=== PATIENT | female | born 1995 | race African-American/Black ===

== ENCOUNTER 2018-08-03 10:41 | Emergency (ER) | payer BC, MEDICAID ==
[2018-08-03] MEDS ORDERED: Ondansetron 4 MG/2 ML SDV IVPUSH ONE (11:05)
[2018-08-03] MEDS ORDERED: Sodium Chloride 0.9% 10 ML Syringe FLUSH PRN (11:05)
[2018-08-03] MEDS: Sodium Chloride 0.9% 1,000 ML IV SCH ×2 (11:21→12:26)
--- NOTE | 2018-08-03 11:47 | EDM.PDOC ---
ED HPI GENERAL MEDICAL PROBLEM - General Chief Complaint: Gastrointestinal Problem Stated Complaint: VOMITING 5 WEEKS PREG Time Seen by Provider: 08/03/18 11:04 Source of Information: Reports: Patient, RN Notes Reviewed History Limitations: Reports: Language Barrier (interpretive services utilized, is persian speaking.) - History of Present Illness INITIAL COMMENTS - FREE TEXT/NARRATIVE: Patient is a 22-year-old female who comes to the ED with her for evaluation of vomiting and . The patient is Serbian speaking only, the does speak little Greenlandic, but would prefer to use interpretive services. The patient states she is 5 weeks , , and has seen Dr. Turner for this vomiting. She notes she has been having this vomiting for the past week. The vomiting started yellow, green, bile in nature and now she thinks she is vomiting up blood. The patient notes that she is having stomach pain and bilateral upper abdomen pain due to the vomiting. As far as I can tell the patient was given a prescription for Zofran, but took it incorrectly. She took one tab and swallowed it yesterday, and this did not provide any nausea relief so the patient kept vomiting. The patient states that she has only taken 1 dose of Zofran yesterday. The patient denies any vaginal bleeding or lower abdominal cramping at this time. The patient states she has not been able to keep much down for foods or fluids, and feels somewhat lightheaded due to this. She denies any questionable foods that she may have eaten that would have attributed to this. 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: () Musculoskeletal History: Reports: None Neurological History: Reports: None Psychiatric History: Reports: None Endocrine/Metabolic History: Reports: None Hematologic History: Reports: None Immunologic History: Reports: None Oncologic (Cancer) History: Reports: None Dermatologic History: Reports: None - Infectious Disease History Infectious Disease History: Reports: None - Past Surgical History Head Surgeries/Procedures: Reports: None Social & Family History - Tobacco Use Smoking Status *Q: Never Smoker - Caffeine Use Caffeine Use: Reports: None - Recreational Drug Use Recreational Drug Use: No ED ROS GENERAL - Review of Systems Review Of Systems: See Below Constitutional: Reports: Weakness (generalized). Denies: Fever, Chills HEENT: Reports: No Symptoms Respiratory: Denies: Shortness of Breath, Cough Cardiovascular: Denies: Chest Pain GI/Abdominal: Reports: Abdominal Pain (epigastrium, bilateral upper abdomen), Nausea, Vomiting. Denies: Constipation, Diarrhea : Reports: Other (no vaginal bleeding). Denies: Dysuria Musculoskeletal: Reports: No Symptoms Skin: Reports: No Symptoms Neurological: Reports: Dizziness (lightheadedness). Denies: Confusion Psychiatric: Reports: No Symptoms Hematologic/Lymphatic: Reports: No Symptoms ED EXAM - Physical Exam Exam: See Below Exam Limited By: Language Barrier (interpretive services utilized, is persian speaking.) General Appearance: Alert, WD/WN, No Apparent Distress Eye Exam: Bilateral Eye: Normal Inspection Ears: Normal External Exam Nose: Normal Inspection, Normal Mucosa, No Blood Throat/Mouth: Normal Inspection, Normal Lips, Normal Teeth, Normal Gums, Normal Oropharynx, Normal Voice, No Airway Compromise Head: Atraumatic, Normocephalic Neck: Normal Inspection, Supple, Non-Tender, Full Range of Motion Respiratory/Chest: No Respiratory Distress, Lungs Clear, Normal Breath Sounds, No Accessory Muscle Use, Chest Non-Tender Cardiovascular: Normal Peripheral Pulses, Regular Rate, Rhythm, No Murmur GI/Abdominal Exam: Normal Bowel Sounds, Soft, Non-Tender, No Distention, No Mass Heart Tones: Not Daniels Movement: Not Appreciated Extremities: Normal Inspection, Normal Capillary Refill Neurological: Alert, Oriented, Normal Cognition, No Motor/Sensory Deficits Psychiatric: Normal Affect, Normal Mood Skin Exam: Warm, Dry, Intact, Normal Color, No Rash Course - Vital Signs Last Recorded V/S: Last Vital Signs Temp 98.2 F 08/03/18 10:56 Pulse 64 08/03/18 10:56 Resp 16 08/03/18 10:56 BP 122/69 08/03/18 10:56 Pulse Ox 99 08/03/18 10:56 Orthostatic Blood Pressure [ 117/75 Standing] Orthostatic Blood Pressure [ 118/72 Sitting] Orthostatic Blood Pressure [ 114/72 Supine] - Orders/Labs/Meds Orders: Active Orders 24 hr Category Date Time Status Orthostatic Vital Signs [RC] ASDIRECTED Care 08/03/18 12:07 Active Peripheral IV Care [RC] . DIRECTED Care 08/03/18 11:05 Active Sodium Chloride 0.9% [Normal Saline] 1,000 ml Med 08/03/18 11:15 Active IV ASDIRECTED Sodium Chloride 0.9% [Normal Saline] 1,000 ml Med 08/03/18 12:15 Active IV ASDIRECTED Sodium Chloride 0.9% [Saline Flush] Med 08/03/18 11:05 Active 10 ml FLUSH ASDIRECTED PRN Peripheral IV Insertion Adult [OM.PC] Routine Oth 08/03/18 11:05 Ordered Medication Orders Sodium Chloride (Normal Saline) 1,000 mls @ 999 mls/hr IV ASDIRECTED TIGRE Last Admin: 08/03/18 12:26 Dose: 999 mls/hr Infusion: 08/03/18 12:22 Dose: 999 mls/hr Admin: 08/03/18 11:21 Dose: 999 mls/hr Sodium Chloride (Normal Saline) 1,000 mls @ 999 mls/hr IV ASDIRECTED TIGRE Sodium Chloride (Saline Flush) 10 ml FLUSH ASDIRECTED PRN PRN Reason: Keep Vein Open Last Admin: 08/03/18 11:22 Dose: 10 ml Labs: Laboratory Tests 08/03/18 08/03/18 Range/Units 11:20 11:20 WBC 9.30 (3.98-10.04) K/mm3 RBC 4.70 (3.98-5.22) M/mm3 Hgb 13.3 (11.2-15.7) gm/L Hct 39.2 (34.1-44.9) % MCV 83.4 (79.4-94.8) fl MCH 28.3 (25.6-32.2) pg MCHC 33.9 (32.2-35.5) g/dl RDW Std Deviation 39.0 (36.4-46.3) fL Plt Count 346 (182-369) K/mm3 MPV 11.2 (9.4-12.3) fl Neutrophils % (Manual) 71 H (40-60) % Band Neutrophils % 0 (0-10) % Lymphocytes % (Manual) 22 (20-40) % Atypical Lymphs % 0 % Monocytes % (Manual) 6 (2-10) % Eosinophils % (Manual) 0 L (0.7-5.8) % Basophils % (Manual) 1 (0.1-1.2) Platelet Estimate Adequate RBC Morph Comment Normal Sodium 135 L (136-145) mEq/L Potassium 3.9 (3.5-5.1) mEq/L Chloride 99 (98-107) mEq/L Carbon Dioxide 23 (21-32) mEq/L Anion Gap 16.9 H (5-15) BUN 11 (7-18) mg/dL Creatinine 0.7 (0.55-1.02) mg/dL Est Cr Clr Drug Dosing TNP Estimated GFR (MDRD) > 60 (>60) mL/min BUN/Creatinine Ratio 15.7 (14-18) Glucose 80 (74-106) mg/dL Calcium 9.7 (8.5-10.1) mg/dL Meds: Medications Generic Name Dose Route Start Last Admin Trade Name Freq PRN Reason Stop Dose Admin Sodium Chloride 1,000 mls @ 999 mls/hr 08/03/18 11:15 08/03/18 12:26 Normal Saline IV 999 mls/hr ASDIRECTED TIGRE Administration Sodium Chloride 1,000 mls @ 999 mls/hr 08/03/18 12:15 Normal Saline IV ASDIRECTED TIGRE Sodium Chloride 10 ml 08/03/18 11:05 08/03/18 11:22 Saline Flush FLUSH 10 ml ASDIRECTED PRN Administration Keep Vein Open Discontinued Medications Generic Name Dose Route Start Last Admin Trade Name Freq PRN Reason Stop Dose Admin Acetaminophen 650 mg 08/03/18 12:02 08/03/18 12:23 Tylenol PO 08/03/18 12:03 650 mg NOW ONE Administration Ondansetron HCl 4 mg 08/03/18 11:05 08/03/18 11:21 Zofran IVPUSH 08/03/18 11:06 4 mg ONETIME ONE Administration - Re-Assessments/Exams Free Text/Narrative Re-Assessment/Exam: 08/03/18 12:07 Patient presents to the ED for the evaluation of vomiting and . Have ordered IV fluids, 4 mg IV Zofran, CBC, BMP for initial management. Will likely order another bag of fluids as the patient states she still feels dizzy and lightheaded after most of the first bag of IVF has been given. We will do orthostatic vital signs upon completion of the first bag. 08/03/18 12:44 Patient's labs have returned, her sodium is mildly low at 135, and anion gap is slightly elevated at 16.9. IV fluid should help, and will re-educate her on the use of Zofran. Departure - Departure Time of Disposition: 13:01 Disposition: Home, Self-Care 01 Condition: Fair Clinical Impression: Vomiting during - Discharge Information *PRESCRIPTION DRUG MONITORING PROGRAM REVIEWED*: No *COPY OF PRESCRIPTION DRUG MONITORING REPORT IN PATIENT BLAKE: No Instructions: Morning Sickness, [id number] Referrals: Shi Turner MD [Primary Care Provider] - Forms: ED Department Discharge Additional Instructions: You were seen in the ER for your vomiting. Your laboratory evaluation demonstrated no bacterial infection, and slight dehydration. You were given IV fluids to correct this. Please take the anti-nausea medication Zofran, 1 tab dissolvable under your tongue every 8 hours as needed for nausea/vomiting. You may want to try to stick to clear liquids over the next 24 hours (gatorade, chicken broths, etc.) and advance to bland diet as tolerated. You may take 500mg Tylenol every 6 hours as needed for further pain relief, Do not take more than 4000mg in a 24 hour time span. Please follow up with Dr. Turner for further management of your . Please return to the ER if your symptoms should change or worsen. lorena dietz'ayt fi ER lituqyiwk. 'mago taqyirosibel hill edm jose aadm. le ' iietawuk sawayil IV litashih hadha. elizja tanjunaid gua' Zofran almadasade makghoksanaan , 1 ealamat tabwib qabilat l[address] taht [address] saeat hsb alhaadyt aubreeghuthraleigh / alqay'. qad targhab fi muhawalat [place] bimash alsawayil ealaa madar al'arbae weshryn saeat alqadima (altamsah , [place] aldijaj , wama 'iilaa dhulka) waltaqadum 'iilaa nizam ghadhayiyin mariajose nancy hu maqbulun. qad takhudh [address] saeat hsb alhajat litakhfif al'jaden , wala takhudh 'akthar min [address] khilal fatrat zamaniat tablugh 24 saeat. yrja almutabaeat gardner alduktur mukmakin limazid min 'iidarat alhaml. yrja aleawdat 'iilaa altawari 'iidha taghayarat al'aerad 'aw sa'at. - My Orders Last 24 Hours: My Active Orders 08/03/18 11:05 Peripheral IV Care [RC] . DIRECTED Sodium Chloride 0.9% [Saline Flush] 10 ml FLUSH ASDIRECTED PRN Peripheral IV Insertion Adult [OM.PC] Routine 08/03/18 11:15 Sodium Chloride 0.9% [Normal Saline] 1,000 ml IV ASDIRECTED 08/03/18 12:07 Orthostatic Vital Signs [RC] ASDIRECTED 08/03/18 12:15 Sodium Chloride 0.9% [Normal Saline] 1,000 ml IV ASDIRECTED - Assessment/Plan Last 24 Hours: My Active Orders 08/03/18 11:05 Peripheral IV Care [RC] . DIRECTED Sodium Chloride 0.9% [Saline Flush] 10 ml FLUSH ASDIRECTED PRN Peripheral IV Insertion Adult [OM.PC] Routine 08/03/18 11:15 Sodium Chloride 0.9% [Normal Saline] 1,000 ml IV ASDIRECTED 08/03/18 12:07 Orthostatic Vital Signs [RC] ASDIRECTED 08/03/18 12:15 Sodium Chloride 0.9% [Normal Saline] 1,000 ml IV ASDIRECTED
[2018-08-03] MEDS ORDERED: Acetaminophen 325 MG Tab PO ONE (12:02)
[2018-08-03] MEDS ORDERED: Sodium Chloride 0.9% 1,000 ML IV SCH (12:15)
== END 2018-08-03 13:35 | disposition home or self-care (01) ==
LOC: JD.ED 10:41
DX: O21.9 Vomiting of pregnancy, unspecified (principal); Z3A.01 Less than 8 weeks gestation of pregnancy
CPT/HCPCS: 36415; 80048; 85007; 85027; 96361; 96374; 99284; A9270; J2405; J7040; 99283

== ENCOUNTER 2019-03-14 06:00 | Inpatient (IN) | payer BC ==
[2019-03-14] MEDS ORDERED: Sodium Chloride 0.9% 10 ML Syringe FLUSH PRN (07:06)
[2019-03-14] MEDS ORDERED: Nalbuphine 10 MG/ML Syringe IVPUSH PRN (07:06)
[2019-03-14] MEDS ORDERED: Oxytocin/Lactated Ringers 10 UNIT/1,000 ML BAG IV SCH ×2 (07:15)
[2019-03-14] MEDS ORDERED: Lactated Ringers 1,000 ML IV SCH (07:15)
[2019-03-14] MEDS ORDERED: Lidocaine 1% 50 ML MDV INJECT ONE (08:00)
[2019-03-14] MEDS: Aluminum Hydroxide/Magnesium Hydroxide/Simethicone Susp 30 ML Cup PO PRN ×2 (08:02→14:59)
[2019-03-14] MEDS ORDERED: Bupivacaine/fentaNYL/NS 100 ML Bag EPIDUR PRN (08:12)
[2019-03-14] MEDS ORDERED: ePHEDrine 50 MG/ML SDV IVPUSH PRN (08:12)
[2019-03-14] MEDS ORDERED: fentaNYL 100 MCG/2 ML SDV EPIDUR PRN (08:12)
[2019-03-14] MEDS ORDERED: diphenhydrAMINE 50 MG/ML SDV IVPUSH PRN (08:12)
--- NOTE | 2019-03-14 08:17 | PCM.LDHP ---
L&D History of Present Illness - General Date of Service: 03/14/19 Admit Problem/Dx: Patient Status Order with Admit Dx/Problem 03/14/19 07:06 Patient Status [ADT] Routine Admission Diagnosis/Problem Admission Diagnosis/Problem Source of Information: Patient History Limitations: Reports: No Limitations - History of Present Illness Introduction:: 23 year old at 38w3d presents with SROM clear fluid at 0530 am. Contractions began thereafter. PNC with myself without complications. 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: () Musculoskeletal History: Reports: None Neurological History: Reports: None Psychiatric History: Reports: None Endocrine/Metabolic History: Reports: None Hematologic History: Reports: None Immunologic History: Reports: None Oncologic (Cancer) History: Reports: None Dermatologic History: Reports: None - Infectious Disease History Infectious Disease History: Reports: None - Past Surgical History Head Surgeries/Procedures: Reports: None Social & Family History - Caffeine Use Caffeine Use: Reports: None H&P Review of Systems - Review of Systems: Review Of Systems: See Below General: Reports: No Symptoms HEENT: Reports: No Symptoms Pulmonary: Reports: No Symptoms Cardiovascular: Reports: No Symptoms Gastrointestinal: Reports: No Symptoms Genitourinary: Reports: No Symptoms Musculoskeletal: Reports: No Symptoms Skin: Reports: No Symptoms Psychiatric: Reports: No Symptoms Neurological: Reports: No Symptoms Hematologic/Lymphatic: Reports: No Symptoms Immunologic: Reports: No Symptoms L&D Exam - Exam Exam: See Below - Vital Signs Weight: 68.946 kg - OB Specific Contraction Intensity: Moderate to Strong Movement: Active Heart Tones: Present Heart Rate (FHR) Variability: Moderate (6-25 bmp) Presentation: Vertex - Galindo Score Galindo Score Cervix Position: Midposition Galindo Score Consistency: Soft Galindo Score Effacement: 51-70% Galindo Score Dilation: 3-4 cm Galindo Score 's Station: -2 Galindo Score Total: 8 - Exam General: Alert, Oriented HEENT: PERRLA, Conjunctiva Clear, EACs Clear, EOMI, Hearing Intact, Mucosa Moist & [place], Nares Patent, Normal Nasal Septum, Posterior Pharynx Clear, TMs Clear Neck: Supple, Trachea Midline Cardiovascular: Regular Rate, Regular Rhythm GI/Abdominal Exam: Normal Bowel Sounds, Soft, Non-Tender, No Organomegaly, No Distention, No Abnormal Bruit, No Mass, Pelvis Stable Rectal Exam: Normal Exam, Normal Rectal Tone Back Exam: Normal Inspection, Full Range of Motion Extremities: Normal Inspection, Normal Range of Motion, Non-Tender, No Pedal Edema, Normal Capillary Refill Neurological: Cranial Nerves Intact, Reflexes Equal Bilateral Psychiatric: Alert, Normal Affect, Normal Mood Problem List Initiated/Reviewed/Updated: Yes Orders Last 24hrs: Active Orders 24 hr Category Date Time Status Patient Status [ADT] Routine ADT 03/14/19 07:06 Active Activity as Tolerated [RC] PFP Care 03/14/19 07:06 Active Communication Order [RC] ASDIRECTED Care 03/14/19 07:06 Active Heart Tones [RC] ASDIRECTED Care 03/14/19 07:07 Active Non Stress Test [RC] PER UNIT ROUTINE Care 03/14/19 07:06 Active Notify Provider [RC] PFP Care 03/14/19 07:06 Active Notify Provider [RC] PRN Care 03/14/19 07:06 Active Peripheral IV Care [RC] . DIRECTED Care 03/14/19 07:07 Active Urinary Catheter Assessment [RC] ASDIRECTED Care 03/14/19 07:06 Active Vital Signs [RC] PER UNIT ROUTINE Care 03/14/19 07:06 Active Regular Diet [DIET] Diet 03/14/19 Breakfast Active BLOOD BANK HOLD SPECIMEN [BBK] Routine Lab 03/14/19 07:36 Received CBC WITH AUTO DIFF [HEME] Routine Lab 03/14/19 07:36 Received RAPID PLASMA REAGIN,RPR [CHEM] Routine Lab 03/14/19 07:36 Received Alum Hydrox/Mag Hydrox/Simeth [Mag-Al Plus] Med 03/14/19 07:53 Active 30 ml PO Q4H PRN Lactated Ringers [Ringers, Lactated] 1,000 ml Med 03/14/19 07:15 Active IV ASDIRECTED Oxytocin/Lactated Ringers [Pitocin in LR 10 Units/1,000 Med 03/14/19 07:15 Active ML] 10 unit in 1,000 ml IV .CONTINUOUS Oxytocin/Lactated Ringers [Pitocin in LR 10 Units/1,000 Med 03/14/19 07:15 Active ML] 10 unit in 1,000 ml IV TITRATE Sodium Chloride 0.9% [Saline Flush] Med 03/14/19 07:06 Active 10 ml FLUSH ASDIRECTED PRN Electronic Heart Tones Ext w TOCO [WOMSER] Oth 03/14/19 07:06 Ordered Routine Electronic Heart Tones Internal [WOMSER] Per Unit Ot 03/14/19 07:06 Ordered Routine Peripheral IV Insertion Adult [OM.PC] Routine Oth 03/14/19 07:06 Ordered Resuscitation Status Routine Resus Stat 03/14/19 07:06 Ordered Medication Orders Al Hydroxide/Mg Hydroxide (Mag-Al Plus) 30 ml PO Q4H PRN PRN Reason: Heartburn Lactated Ringer's (Ringers, Lactated) 1,000 mls @ 100 mls/hr IV ASDIRECTED TIGRE Oxytocin/Lactated Ringer's (Pitocin In Lr 10 Units/1,000 Ml) 10 unit in 1,000 mls @ 12 mls/hr IV TITRATE TIGRE; Protocol Oxytocin/Lactated Ringer's (Pitocin In Lr 10 Units/1,000 Ml) 10 unit in 1,000 mls @ 500 mls/hr IV .CONTINUOUS TIGRE Sodium Chloride (Saline Flush) 10 ml FLUSH ASDIRECTED PRN PRN Reason: Keep Vein Open Assessment/Plan Comment:: Term labor with SROM clear fluid. Doing well. Doesn't want epidural. Doing ok otherwise
[2019-03-14] MEDS ORDERED: Lidocaine 1% 50 ML MDV ONE (17:45)
--- NOTE | 2019-03-14 18:30 | PCM.SN ---
- Free Text/Narrative Note: Stage I - Patient presented with SROM. Progressed to complete with pitocin augmentation. Overall reassuring FHT Stage II - of viable female, weight 2890 g, 8/9 APGARS at 1811. Head delivered in controlled manner over intact perineum. body and shoulders without difficulty. To maternal abdomen. Positive cry. Stage III - of intact placenta 3vc. Small 1st degree laceration. Repaired with 3-0 vicryl. EBL 250.
[2019-03-14] MEDS ORDERED: Ibuprofen 600 MG Tab PO SCH (18:44)
[2019-03-14] MEDS ORDERED: Witch Hazel Medicated Pads 40/Jar TOP PRN (18:44)
[2019-03-14] MEDS ORDERED: Benzocaine/Menthol 20%-0.5% Spray 56 GM Canister TOP PRN (18:44)
[2019-03-14] MEDS ORDERED: Docusate Sodium 100 MG Cap PO PRN (18:44)
[2019-03-15] MEDS ORDERED: Calcium Carbonate 500 MG Tab.Chew PO PRN (02:56)
[2019-03-15] MEDS ORDERED: Famotidine 20 MG Tab PO ONE (04:57)
--- NOTE | 2019-03-15 05:07 | PCM.PNPP ---
- General Info Date of Service: 03/15/19 Functional Status: Reports: Pain Controlled, Tolerating Diet, Ambulating, Urinating - Review of Systems General: Reports: No Symptoms Pulmonary: Reports: No Symptoms Cardiovascular: Reports: No Symptoms Gastrointestinal: Reports: No Symptoms Genitourinary: Reports: No Symptoms Musculoskeletal: Reports: No Symptoms Systems Review Comment:: Interview done with aid of who acted as validation leader - Patient Data Vital Signs - Most Recent: Last Vital Signs Temp 37.0 C 03/15/19 02:58 Pulse 84 03/15/19 02:58 Resp 17 03/15/19 02:58 BP 115/63 03/15/19 02:58 Pulse Ox 100 03/15/19 02:58 Weight - Most Recent: 68.946 kg I&O - Last 24 Hours: Intake & Output 03/14/19 03/14/19 03/15/19 14:59 22:59 06:59 Intake Total 90 1000 Balance 90 1000 Lab Results - Last 24 Hours: Laboratory Results - last 24 hr 03/14/19 03/14/19 Range/Units 07:36 07:36 WBC 10.29 H (3.98-10.04) K/mm3 RBC 4.56 (3.98-5.22) M/mm3 Hgb 9.3 L D (11.2-15.7) gm/dl Hct 30.7 L (34.1-44.9) % MCV 67.3 L D (79.4-94.8) fl MCH 20.4 L (25.6-32.2) pg MCHC 30.3 L (32.2-35.5) g/dl RDW Std Deviation 41.7 (36.4-46.3) fL Plt Count 382 H (182-369) K/mm3 MPV 10.2 (9.4-12.3) fl Neut % (Auto) 57.8 (34.0-71.1) % Lymph % (Auto) 25.5 (19.3-51.7) % [place] % (Auto) 15.4 H (4.7-12.5) % Eos % (Auto) 1.0 (0.7-5.8) Baso % (Auto) 0.1 (0.1-1.2) % Neut # (Auto) 5.96 (1.56-6.13) K/mm3 Lymph # (Auto) 2.62 (1.18-3.74) K/mm3 [place] # (Auto) 1.58 H (0.24-0.36) K/mm3 Eos # (Auto) 0.10 (0.04-0.36) K/mm3 Baso # (Auto) 0.01 (0.01-0.08) K/mm3 Manual Slide Review Abnormal smear RPR Non-reactive (NONREACTIVE) Med Orders - Current: Current Medications Benzocaine/Menthol (Dermoplast Pain Relief [place]) 0 gm TOP ASDIRECTED PRN PRN Reason: Perineal Comfort Measure Calcium Carbonate/Glycine (Tums) 500 mg PO Q2H PRN PRN Reason: INDIGESTION Docusate Sodium (Colace) 100 mg PO BID PRN PRN Reason: Constipation Ibuprofen (Motrin) 600 mg PO Q6H PRN PRN Reason: Pain Witch Domonique (Tucks) 1 pad TOP ASDIRECTED PRN PRN Reason: Pain Discontinued Medications Al Hydroxide/Mg Hydroxide (Mag-Al Plus) 30 ml PO Q4H PRN PRN Reason: Heartburn Last Admin: 03/14/19 14:59 Dose: 30 ml Calcium Carbonate/Glycine (Tums) 500 mg PO Q2H PRN PRN Reason: Indigestion Diphenhydramine HCl (Benadryl) 25 mg IVPUSH Q6H PRN PRN Reason: pruritis Ephedrine Sulfate (Ephedrine Sulfate) 5 mg IVPUSH ASDIRECTED PRN PRN Reason: Hypotension Famotidine (Pepcid) 20 mg PO ONETIME ONE Stop: 03/15/19 04:58 Fentanyl (Sublimaze) 100 mcg EPIDUR Q3H PRN PRN Reason: Pain Fentanyl/Bupivacaine HCl (Fentanyl/Bupivacaine/Ns 2 Mcg-0.125% 100 Ml) 100 ml EPIDUR ASDIRECTED PRN PRN Reason: Pain Lactated Ringer's (Ringers, Lactated) 1,000 mls @ 100 mls/hr IV ASDIRECTED TIGRE Last Admin: 03/14/19 08:27 Dose: 100 mls/hr Oxytocin/Lactated Ringer's (Pitocin In Lr 10 Units/1,000 Ml) 10 unit in 1,000 mls @ 12 mls/hr IV TITRATE TIGRE; Protocol Last Titration: 03/14/19 18:15 Dose: 500 mls/hr Oxytocin/Lactated Ringer's (Pitocin In Lr 10 Units/1,000 Ml) 10 unit in 1,000 mls @ 500 mls/hr IV .CONTINUOUS TIGRE Ibuprofen (Motrin) 600 mg PO Q6H TIGRE Last Admin: 03/14/19 20:47 Dose: 600 mg Lidocaine HCl (Xylocaine 1%) 50 ml INJECT ASDIRECTED ONE Stop: 03/14/19 08:01 Last Admin: 03/14/19 18:15 Dose: 10 ml Lidocaine HCl (Xylocaine 1%) Confirm Administered Dose 50 ml .ROUTE .STK-MED ONE Stop: 03/14/19 17:46 Last Admin: 03/14/19 18:29 Dose: Not Given Nalbuphine HCl (Nubain) 10 mg IVPUSH Q2H PRN PRN Reason: Pain Sodium Chloride (Saline Flush) 10 ml FLUSH ASDIRECTED PRN PRN Reason: Keep Vein Open - Infant Interaction Infant Disposition, : [place] in Room with Family Interaction: Holding Feeding: Attempted ; Nursed Fair/Poor Support Person: - Recovery Exam Fundal Tone: Firm Fundal Level: 1 Fingerbreadths Below Umbilicus Fundal Placement: Midline Lochia Amount: Scant Lochia Color: [place] Perineum Description: Intact, Minimal Bruising/Swelling Episiotomy/Laceration: Approximated Urinary Elimination: Voided - Exam General: Alert, Oriented, Cooperative GI/Abdominal Exam: Soft, Non-Tender Extremities: Normal Inspection Skin: Warm, Dry, Intact - Problem List Review Problem List Initiated/Reviewed/Updated: Yes - Assessment Assessment:: PPD#1 from - Plan Plan:: Routine cares Breast feeding Discharge home tomorrow
[2019-03-15] MEDS: Ibuprofen 600 MG Tab PO PRN ×2 (11:54→22:19)
[2019-03-16] MEDS: Calcium Carbonate 500 MG Tab.Chew PO PRN ×2 (03:49→07:59)
--- NOTE | 2019-03-16 07:46 | PCM.DCSUM1 ---
Discharge Summary - Discharge Data Discharge Date: 03/16/19 Discharge Disposition: Home, Self-Care 01 Condition: Good - Referral to Home Health Primary Care Physician: Shi Turner MD - Patient Summary/Data Complications: None Consults: None Recommended Follow-up Testing/Procedures: Follow up in 3 weeks for check Hospital Course: Patient is a 23 y/o who presented at 38 3/7 wks with SROM. She did well and underwent an uncomplicated . See delivery note. met all goals and was discharged home on PPD#2 - Patient Instructions Diet: Regular Diet as Tolerated Activity: As Tolerated Activity, Other: Pelvic rest for 6 weeks Driving: May Drive Today Showering/Bathing: May Shower Showering/Bathing, Other: May bathe Notify Provider of: Fever, Increased Pain, Swelling and Redness, Drainage, Nausea and/or Vomiting - Discharge Plan *PRESCRIPTION DRUG MONITORING PROGRAM REVIEWED*: No *COPY OF PRESCRIPTION DRUG MONITORING REPORT IN PATIENT BLAKE: No Home Medications: Home Meds No122/Iron/Folic Acid [ Multi Tablet] 1 tab PO DAILY 08/03/18 [ History] Docusate Sodium [Colace] 100 mg PO BID PRN cap 03/15/19 [Rx] Ibuprofen [Motrin] 600 mg PO Q6H PRN tablet 03/15/19 [Rx] Referrals: Shi Turner MD [Primary Care Provider] - (3 weeks for check ) - Discharge Summary/Plan Comment DC Time >30 min.: No - Patient Data Vitals - Most Recent: Last Vital Signs Temp 36.6 C 03/16/19 07:41 Pulse 79 03/16/19 07:41 Resp 14 03/16/19 07:41 BP 103/78 03/16/19 07:41 Pulse Ox 100 03/16/19 07:41 Weight - Most Recent: 68.946 kg Med Orders - Current: Current Medications Benzocaine/Menthol (Dermoplast Pain Relief [place]) 0 gm TOP ASDIRECTED PRN PRN Reason: Perineal Comfort Measure Last Admin: 03/15/19 12:01 Dose: 1 can Calcium Carbonate/Glycine (Tums) 500 mg PO Q2H PRN PRN Reason: INDIGESTION Last Admin: 03/16/19 03:49 Dose: 500 mg Docusate Sodium (Colace) 100 mg PO BID PRN PRN Reason: Constipation Ibuprofen (Motrin) 600 mg PO Q6H PRN PRN Reason: Pain Last Admin: 03/15/19 22:19 Dose: 600 mg Witch Domonique (Tucks) 1 pad TOP ASDIRECTED PRN PRN Reason: Pain Discontinued Medications Al Hydroxide/Mg Hydroxide (Mag-Al Plus) 30 ml PO Q4H PRN PRN Reason: Heartburn Last Admin: 03/14/19 14:59 Dose: 30 ml Calcium Carbonate/Glycine (Tums) 500 mg PO Q2H PRN PRN Reason: Indigestion Diphenhydramine HCl (Benadryl) 25 mg IVPUSH Q6H PRN PRN Reason: pruritis Ephedrine Sulfate (Ephedrine Sulfate) 5 mg IVPUSH ASDIRECTED PRN PRN Reason: Hypotension Famotidine (Pepcid) 20 mg PO ONETIME ONE Stop: 03/15/19 04:58 Last Admin: 03/15/19 05:44 Dose: 20 mg Fentanyl (Sublimaze) 100 mcg EPIDUR Q3H PRN PRN Reason: Pain Fentanyl/Bupivacaine HCl (Fentanyl/Bupivacaine/Ns 2 Mcg-0.125% 100 Ml) 100 ml EPIDUR ASDIRECTED PRN PRN Reason: Pain Lactated Ringer's (Ringers, Lactated) 1,000 mls @ 100 mls/hr IV ASDIRECTED TIGRE Last Admin: 03/14/19 08:27 Dose: 100 mls/hr Oxytocin/Lactated Ringer's (Pitocin In Lr 10 Units/1,000 Ml) 10 unit in 1,000 mls @ 12 mls/hr IV TITRATE TIGRE; Protocol Last Titration: 03/14/19 18:15 Dose: 500 mls/hr Oxytocin/Lactated Ringer's (Pitocin In Lr 10 Units/1,000 Ml) 10 unit in 1,000 mls @ 500 mls/hr IV .CONTINUOUS TIGRE Ibuprofen (Motrin) 600 mg PO Q6H TIGRE Last Admin: 03/14/19 20:47 Dose: 600 mg Lidocaine HCl (Xylocaine 1%) 50 ml INJECT ASDIRECTED ONE Stop: 03/14/19 08:01 Last Admin: 03/14/19 18:15 Dose: 10 ml Lidocaine HCl (Xylocaine 1%) Confirm Administered Dose 50 ml .ROUTE .STK-Fastnote ONE Stop: 03/14/19 17:46 Last Admin: 03/14/19 18:29 Dose: Not Given Nalbuphine HCl (Nubain) 10 mg IVPUSH Q2H PRN PRN Reason: Pain Sodium Chloride (Saline Flush) 10 ml FLUSH ASDIRECTED PRN PRN Reason: Keep Vein Open
--- NOTE | 2019-03-16 07:46 | PCM.PNPP ---
- General Info Date of Service: 03/16/19 Functional Status: Reports: Pain Controlled, Tolerating Diet, Ambulating, Urinating - Review of Systems General: Reports: No Symptoms Pulmonary: Reports: No Symptoms Cardiovascular: Reports: No Symptoms Gastrointestinal: Reports: No Symptoms Genitourinary: Reports: No Symptoms Musculoskeletal: Reports: No Symptoms Neurological: Reports: No Symptoms - Patient Data Vital Signs - Most Recent: Last Vital Signs Temp 36.6 C 03/16/19 07:41 Pulse 79 03/16/19 07:41 Resp 14 03/16/19 07:41 BP 103/78 03/16/19 07:41 Pulse Ox 100 03/16/19 07:41 Weight - Most Recent: 68.946 kg Med Orders - Current: Current Medications Benzocaine/Menthol (Dermoplast Pain Relief [place]) 0 gm TOP ASDIRECTED PRN PRN Reason: Perineal Comfort Measure Last Admin: 03/15/19 12:01 Dose: 1 can Calcium Carbonate/Glycine (Tums) 500 mg PO Q2H PRN PRN Reason: INDIGESTION Last Admin: 03/16/19 03:49 Dose: 500 mg Docusate Sodium (Colace) 100 mg PO BID PRN PRN Reason: Constipation Ibuprofen (Motrin) 600 mg PO Q6H PRN PRN Reason: Pain Last Admin: 03/15/19 22:19 Dose: 600 mg Witch Domonique (Tucks) 1 pad TOP ASDIRECTED PRN PRN Reason: Pain Discontinued Medications Al Hydroxide/Mg Hydroxide (Mag-Al Plus) 30 ml PO Q4H PRN PRN Reason: Heartburn Last Admin: 03/14/19 14:59 Dose: 30 ml Calcium Carbonate/Glycine (Tums) 500 mg PO Q2H PRN PRN Reason: Indigestion Diphenhydramine HCl (Benadryl) 25 mg IVPUSH Q6H PRN PRN Reason: pruritis Ephedrine Sulfate (Ephedrine Sulfate) 5 mg IVPUSH ASDIRECTED PRN PRN Reason: Hypotension Famotidine (Pepcid) 20 mg PO ONETIME ONE Stop: 03/15/19 04:58 Last Admin: 03/15/19 05:44 Dose: 20 mg Fentanyl (Sublimaze) 100 mcg EPIDUR Q3H PRN PRN Reason: Pain Fentanyl/Bupivacaine HCl (Fentanyl/Bupivacaine/Ns 2 Mcg-0.125% 100 Ml) 100 ml EPIDUR ASDIRECTED PRN PRN Reason: Pain Lactated Ringer's (Ringers, Lactated) 1,000 mls @ 100 mls/hr IV ASDIRECTED TIGRE Last Admin: 03/14/19 08:27 Dose: 100 mls/hr Oxytocin/Lactated Ringer's (Pitocin In Lr 10 Units/1,000 Ml) 10 unit in 1,000 mls @ 12 mls/hr IV TITRATE TIGRE; Protocol Last Titration: 03/14/19 18:15 Dose: 500 mls/hr Oxytocin/Lactated Ringer's (Pitocin In Lr 10 Units/1,000 Ml) 10 unit in 1,000 mls @ 500 mls/hr IV .CONTINUOUS TIGRE Ibuprofen (Motrin) 600 mg PO Q6H TIGRE Last Admin: 03/14/19 20:47 Dose: 600 mg Lidocaine HCl (Xylocaine 1%) 50 ml INJECT ASDIRECTED ONE Stop: 03/14/19 08:01 Last Admin: 03/14/19 18:15 Dose: 10 ml Lidocaine HCl (Xylocaine 1%) Confirm Administered Dose 50 ml .ROUTE .STK-MED ONE Stop: 03/14/19 17:46 Last Admin: 03/14/19 18:29 Dose: Not Given Nalbuphine HCl (Nubain) 10 mg IVPUSH Q2H PRN PRN Reason: Pain Sodium Chloride (Saline Flush) 10 ml FLUSH ASDIRECTED PRN PRN Reason: Keep Vein Open - Interaction Infant Disposition, : in Room with Family Interaction: Holding Feeding: Attempted ; Nursed Fair/Poor Support Person: - Recovery Exam Fundal Tone: Firm Fundal Level: 2 Fingerbreadths Below Umbilicus Fundal Placement: Midline Lochia Amount: Scant Lochia Color: [place] Perineum Description: Intact, Minimal Bruising/Swelling Episiotomy/Laceration: Approximated Bladder Status: Voiding Urinary Elimination: Voided - Exam General: Alert, Oriented, Cooperative GI/Abdominal Exam: Soft, Non-Tender Extremities: Normal Inspection Skin: Warm, Dry, Intact - Problem List Review Problem List Initiated/Reviewed/Updated: Yes - My Orders Last 24 Hours: My Active Orders 03/16/19 07:46 Ready for Discharge [RC] PER UNIT ROUTINE - Assessment Assessment:: PPD#2 from - Plan Plan:: Routine cares Breast feeding Discharge home today
[2019-03-16] MEDS: Ibuprofen 600 MG Tab PO PRN (07:58)
== END 2019-03-16 11:00 | disposition home or self-care (01) | DRG 560 ==
LOC: JD.OB 06:00 → JD.OBCHECK 06:00 → JD.OB 07:06 → OBSVTOIN 18:11 → JD.OB 18:12
PROVIDERS: ADMIT Obstetrics & Gynecology; ATTEND Obstetrics & Gynecology
PROC: 10E0XZZ Delivery of Products of Conception, External Approach (ICD-10-PCS; principal; 2019-03-14)
PROC: 0HQ9XZZ Repair Perineum Skin, External Approach (ICD-10-PCS; 2019-03-14)
DX: O70.0 First degree perineal laceration during delivery (principal); Z37.0 Single live birth; Z3A.40 40 weeks gestation of pregnancy
CPT/HCPCS: 36415; 59025; 59409; 85025; 86592; A9270-GY; J2001; J2590; J7120

== ENCOUNTER 2020-09-26 06:17 | Inpatient (IN) | payer BC, OTHER ==
[2020-09-26] MEDS ORDERED: Sodium Chloride 0.9% 10 ML Syringe FLUSH PRN (06:30)
[2020-09-26] MEDS ORDERED: Nalbuphine 10 MG/1 ML Vial IVPUSH PRN (06:30)
[2020-09-26] MEDS ORDERED: Calcium Carbonate 500 MG Tab.Chew PO PRN (06:30)
[2020-09-26] MEDS ORDERED: Lidocaine 1% 50 ML MDV INJECT ONE (06:30)
[2020-09-26] MEDS ORDERED: Oxytocin/Lactated Ringers 10 UNIT/1,000 ML BAG IV SCH ×2 (06:30)
[2020-09-26] MEDS ORDERED: Lactated Ringers 1,000 ML IV SCH (06:30)
--- NOTE | 2020-09-26 08:43 | PCM.LDHP ---
L&D History of Present Illness - General Date of Service: 09/26/20 Admit Problem/Dx: Patient Status Order with Admit Dx/Problem 09/26/20 06:20 Patient Status [ADT] Routine 09/26/20 06:30 Patient Status [ADT] Routine 09/26/20 07:01 Admission Status [Patient Status] [ADT] Routine 09/26/20 07:15 Admission Status [Patient Status] [ADT] Routine Admission Diagnosis/Problem Admission Diagnosis/Problem - History of Present Illness Introduction:: 24 year old at 38w3 here in labor. PNC with myself without complications. Active labor. 7cm. - Related Data Allergies/Adverse Reactions: Allergies Allergy/AdvReac Type Severity Reaction Status Date / Time No Known Allergies Allergy Verified 09/26/20 07:47 Home Medications: Home Meds No122/Iron/Folic Acid [ Multi Tablet] 1 tab PO DAILY 08/03/18 [History] Docusate Sodium [Colace] 100 mg PO BID PRN cap 03/15/19 [Rx] Ibuprofen [Motrin] 600 mg PO Q6H PRN tablet 03/15/19 [Rx] Past Medical History - Past Health History Medical/Surgical History: Denies Medical/Surgical History HEENT History: Reports: None Cardiovascular History: Reports: None Respiratory History: Reports: None Gastrointestinal History: Reports: None Genitourinary History: Reports: None [employer] History: Reports: Musculoskeletal History: Reports: None Neurological History: Reports: None Psychiatric History: Reports: None Endocrine/Metabolic History: Reports: None Hematologic History: Reports: None Immunologic History: Reports: None Oncologic (Cancer) History: Reports: None Dermatologic History: Reports: None - Infectious Disease History Infectious Disease History: Reports: None - Past Surgical History Head Surgeries/Procedures: Reports: None HEENT Surgical History: Reports: None Social & Family History - Family History Family Medical History: Unobtainable - Caffeine Use Caffeine Use: Reports: None H&P Review of Systems - Review of Systems: Review Of Systems: See Below General: Reports: No Symptoms HEENT: Reports: No Symptoms Pulmonary: Reports: No Symptoms Cardiovascular: Reports: No Symptoms Gastrointestinal: Reports: No Symptoms Genitourinary: Reports: No Symptoms Musculoskeletal: Reports: No Symptoms Skin: Reports: No Symptoms Psychiatric: Reports: No Symptoms Neurological: Reports: No Symptoms Hematologic/Lymphatic: Reports: No Symptoms Immunologic: Reports: No Symptoms L&D Exam - Exam Exam: See Below - Vital Signs Vital Signs: Last Vital Signs Temp 36.6 C 09/26/20 06:20 Pulse 73 09/26/20 06:20 Resp 15 09/26/20 06:20 BP 125/67 09/26/20 06:20 Pulse Ox 100 09/26/20 06:20 Weight: 2.381 kg - OB Specific Contraction Intensity: Moderate to Strong Movement: Active Heart Tones: Present Heart Rate (FHR) Variability: Moderate (6-25 bpm) Presentation: Vertex - Galindo Score Galindo Score Cervix Position: Midposition Galindo Score Consistency: Soft Galindo Score Effacement: 51-70% Galindo Score Dilation: > 5 cm Galindo Score Infant's Station: -2 Galindo Score Total: 9 - Exam General: Alert, Oriented HEENT: PERRLA, Conjunctiva Clear, EACs Clear, EOMI, Hearing Intact, Mucosa Moist & [place], Nares Patent, Normal Nasal Septum, Posterior Pharynx Clear, TMs Clear Neck: Supple, Trachea Midline Lungs: Clear to Auscultation, Normal Respiratory Effort Cardiovascular: Regular Rate, Regular Rhythm GI/Abdominal Exam: Normal Bowel Sounds, Soft, Non-Tender, No Organomegaly, No Distention, No Abnormal Bruit, No Mass, Pelvis Stable Back Exam: Normal Inspection, Full Range of Motion Extremities: Normal Inspection, Normal Range of Motion, Non-Tender, No Pedal Edema, Normal Capillary Refill Skin: Warm, Dry, Intact Neurological: Cranial Nerves Intact, Reflexes Equal Bilateral Psychiatric: Alert, Normal Affect, Normal Mood - Patient Data Lab Results Last 24 hrs: Laboratory Results - last 24 hr 09/26/20 09/26/20 09/26/20 Range/Units 06:50 06:50 07:00 WBC 7.17 (3.98-10.04) K/mm3 RBC 4.75 (3.98-5.22) M/mm3 Hgb 11.3 D (11.2-15.7) gm/dl Hct 35.6 (34.1-44.9) % MCV 74.9 L D (79.4-94.8) fl MCH 23.8 L (25.6-32.2) pg MCHC 31.7 L (32.2-35.5) g/dl RDW Std Deviation 43.2 (36.4-46.3) fL Plt Count 284 D (182-369) K/mm3 MPV 11.6 (9.4-12.3) fl Neut % (Auto) 39.5 (34.0-71.1) % Lymph % (Auto) 44.1 (19.3-51.7) % [place] % (Auto) 15.2 H (4.7-12.5) % Eos % (Auto) 0.8 (0.7-5.8) Baso % (Auto) 0.1 (0.1-1.2) % Neut # (Auto) 2.83 (1.56-6.13) K/mm3 Lymph # (Auto) 3.16 (1.18-3.74) K/mm3 [place] # (Auto) 1.09 H (0.24-0.36) K/mm3 Eos # (Auto) 0.06 (0.04-0.36) K/mm3 Baso # (Auto) 0.01 (0.01-0.08) K/mm3 Manual Slide Review Normal smear SARS-CoV-2 RNA (MASOOD) Positive H (NEGATIVE) Blood Type O POSITIVE Gel Antibody Screen Negative Result Diagrams: 09/26/20 06:50 Problem List Initiated/Reviewed/Updated: Yes Orders Last 24hrs: Active Orders 24 hr Category Date Time Status Admission Status [Patient Status] [ADT] Routine ADT 09/26/20 07:15 Active Patient Status [ADT] Routine ADT 09/26/20 06:20 Active Patient Status [ADT] Routine ADT 09/26/20 06:30 Active Activity as Tolerated [RC] PFP Care 09/26/20 06:30 Active Communication Order [RC] ASDIRECTED Care 09/26/20 06:30 Active Heart Tones [RC] ASDIRECTED Care 09/26/20 06:30 Active Non Stress Test [RC] PER UNIT ROUTINE Care 09/26/20 06:20 Active Non Stress Test [RC] PER UNIT ROUTINE Care 09/26/20 06:30 Active Notify Provider [RC] PFP Care 09/26/20 06:30 Active Notify Provider [RC] PRN Care 09/26/20 06:30 Active Peripheral IV Care [RC] . DIRECTED Care 09/26/20 06:30 Active Vital Signs [RC] PER UNIT ROUTINE Care 09/26/20 06:20 Active Vital Signs [RC] PER UNIT ROUTINE Care 09/26/20 06:30 Active Regular Diet [DIET] Diet 09/26/20 Breakfast Active PATIENT RETYPE [BBK] Routine Lab 09/26/20 07:44 Ordered RAPID PLASMA REAGIN,RPR [CHEM] Routine Lab 09/26/20 06:50 Received Calcium Carbonate [Tums] Med 09/26/20 06:30 Active 1,000 mg PO Q2H PRN Lactated Ringers [Ringers, Lactated] 1,000 ml Med 09/26/20 06:30 Active IV ASDIRECTED Nalbuphine [Nubain] Med 09/26/20 06:30 Active 10 mg IVPUSH Q2H PRN Oxytocin/Lactated Ringers [Pitocin in LR 10 Units/1,000 Med 09/26/20 06:30 Active ML] 10 unit in 1,000 ml IV .CONTINUOUS Oxytocin/Lactated Ringers [Pitocin in LR 10 Units/1,000 Med 09/26/20 06:30 Active ML] 10 unit in 1,000 ml IV TITRATE Sodium Chloride 0.9% [Saline Flush] Med 09/26/20 06:30 Active 10 ml FLUSH ASDIRECTED PRN Electronic Heart Tones Ext w TOCO [WOMSER] Oth 09/26/20 06:30 Ordered Routine Electronic Heart Tones Internal [WOMSER] Per Unit Oth 09/26/20 06:30 Ordered Routine Peripheral IV Insertion Adult [OM.PC] Routine Oth 09/26/20 06:30 Ordered Resuscitation Status Routine Resus Stat 09/26/20 06:30 Ordered Medication Orders Calcium Carbonate/Glycine (Calcium Carbonate 500 Mg Tab.Chew) 1,000 mg PO Q2H PRN PRN Reason: Indigestion Lactated Ringer's (Ringers, Lactated) 1,000 mls @ 100 mls/hr IV ASDIRECTED TIGRE Oxytocin/Lactated Ringer's (Pitocin In Lr 10 Units/1,000 Ml) 10 unit in 1,000 mls @ 12 mls/hr IV TITRATE TIGRE; Protocol Oxytocin/Lactated Ringer's (Pitocin In Lr 10 Units/1,000 Ml) 10 unit in 1,000 mls @ 500 mls/hr IV .CONTINUOUS TIGRE Nalbuphine HCl (Nalbuphine 10 Mg/1 Ml Vial) 10 mg IVPUSH Q2H PRN PRN Reason: Pain Sodium Chloride (Sodium Chloride 0.9% 10 Ml Syringe) 10 ml FLUSH ASDIRECTED PRN PRN Reason: Keep Vein Open Assessment/Plan Comment:: Term labor. No issues. Does not desire epidural. Some language barrier.
--- NOTE | 2020-09-26 08:46 | PCM.SN.2 ---
- Free Text/Narrative Note: Stage I - patient presented in active labor. 8 cm. Progressed to complete. AROM clear fluid. Overall reassuring heart tones. Stage II - of viable male, weight 6#11oz, 8/9 apgars at 0804. Head delivered in controlled manner over intact perineum. Body and shoulders atraumatically. Positive cry. To maternal abdomen. Cord clamped and cut. Cord blood collected. Stage III - of intact placenta. 3vc. No laceration. EBL 175 After delivery covid test returns and is positive. Patient denies symptoms. reports was positive in May but subsequently negative. For delivery N95, second mask and face shield worn by me. Patient refused mask for delivery.
[2020-09-26] MEDS ORDERED: Benzocaine/Menthol 20%-0.5% Spray 56 GM Canister TOP PRN (09:08)
[2020-09-26] MEDS ORDERED: Witch Hazel Medicated Pads 40/Jar TOP PRN (09:08)
[2020-09-26] MEDS ORDERED: Ibuprofen 600 MG Tab PO PRN (09:08)
--- NOTE | 2020-09-27 20:12 | PCM.DCSUM1 ---
Discharge Summary - Hospital Course Free Text/Narrative:: Stage I - patient presented in active labor. 8 cm. Progressed to complete. AROM clear fluid. Overall reassuring heart tones. Stage II - of viable male, weight 6#11oz, 8/9 apgars at 0804. Head delivered in controlled manner over intact perineum. Body and shoulders atraumatically. Positive cry. To maternal abdomen. Cord clamped and cut. Cord blood collected. Stage III - of intact placenta. 3vc. No laceration. EBL 175 After delivery covid test returns and is positive. Patient denies symptoms. reports was positive in May but subsequently negative. For delivery N95, second mask and face shield worn by me. Patient refused mask for delivery. day 1 #1 patient is desiring discharge home. She has normal vital signs, minimal lochia. She has been under isolation for Covid positive status. She is nursing baby without problems. Diagnosis: Stroke: No - Discharge Data Discharge Date: 09/27/20 Discharge Disposition: Home, Self-Care 01 Condition: Good - Referral to Home Health Primary Care Physician: Shi Turner MD - Patient Instructions Diet: Regular Diet as Tolerated (Nursing to have increased calories and calcium as recommended) Activity: As Tolerated (No intercourse tampons until bleeding resolves) Driving: May Drive Today Showering/Bathing: May Shower Notify Provider of: Fever, Increased Pain, Swelling and Redness, Nausea and/or Vomiting - Discharge Plan Home Medications: Home Meds No122/Iron/Folic Acid [ Multi Tablet] 1 tab PO DAILY 08/03/18 [History] Ibuprofen [Motrin] 600 mg PO Q6H PRN tablet 09/27/20 [Rx] Patient Handouts: and Self-Care, [id number], Care After Vaginal Delivery Referrals: Shi Turner MD [Primary Care Provider] - (Call primary care provider to schedule appointment. Follow up in 2-3 weeks.) - Discharge Summary/Plan Comment DC Time >30 min.: No Total # of Minutes for Discharge Time: 10 Discharge Summary/Plan Comment: Discharge instructions: 1. Discharge home 2. Diet, activity and follow-up discussed with patient. Recommend nursing diet with increased calories and calcium. 3. Precautions given concern increased pain, bleeding, temperature, signs/symptoms of DVT/PE. 4. Medications per home medication was printed, discussed with and given to the patient. 5. Return to [facility] at [facility] in 2 weeks. Diagnosis: Term -delivered Condition: Good - Patient Data Vitals - Most Recent: Last Vital Signs Temp 36.2 C 09/27/20 10:17 Pulse 85 09/27/20 10:17 Resp 16 09/27/20 10:17 BP 104/62 09/27/20 10:17 Pulse Ox 100 09/27/20 10:17 Weight - Most Recent: 2.381 kg Lab Results - Last 24 hrs: Laboratory Results - last 24 hr 09/26/20 09/27/20 Range/Units 06:50 10:05 WBC 9.79 (3.98-10.04) K/mm3 RBC 4.20 (3.98-5.22) M/mm3 Hgb 10.2 L (11.2-15.7) gm/dl Hct 32.0 L (34.1-44.9) % MCV 76.2 L (79.4-94.8) fl MCH 24.3 L (25.6-32.2) pg MCHC 31.9 L (32.2-35.5) g/dl RDW Std Deviation 43.6 (36.4-46.3) fL Plt Count 283 (182-369) K/mm3 MPV 10.6 (9.4-12.3) fl RPR Non-reactive (NONREACTIVE) Med Orders - Current: Current Medications Discontinued Medications Benzocaine/Menthol (Benzocaine/Menthol 20%-0.5% [place] 56 Gm Canister) 0 gm TOP ASDIRECTED PRN PRN Reason: Perineal Comfort Measure Calcium Carbonate/Glycine (Calcium Carbonate 500 Mg Tab.Chew) 1,000 mg PO Q2H PRN PRN Reason: Indigestion Lactated Ringer's (Ringers, Lactated) 1,000 mls @ 100 mls/hr IV ASDIRECTED TIGRE Last Admin: 09/26/20 07:20 Dose: 100 mls/hr Documented by: Oxytocin/Lactated Ringer's (Pitocin In Lr 10 Units/1,000 Ml) 10 unit in 1,000 mls @ 12 mls/hr IV TITRATE TIGRE; Protocol Last Admin: 09/26/20 08:05 Dose: 166.5 munits/min, 999 mls/hr Documented by: Oxytocin/Lactated Ringer's (Pitocin In Lr 10 Units/1,000 Ml) 10 unit in 1,000 mls @ 500 mls/hr IV .CONTINUOUS TIGRE Ibuprofen (Ibuprofen 600 Mg Tab) 600 mg PO Q6H PRN PRN Reason: Mild pain or fever Last Admin: 09/26/20 14:19 Dose: 600 mg Documented by: Lidocaine HCl (Lidocaine 1% 50 Ml Mdv) 50 ml INJECT ONETIME ONE Stop: 09/26/20 06:31 Nalbuphine HCl (Nalbuphine 10 Mg/1 Ml Vial) 10 mg IVPUSH Q2H PRN PRN Reason: Pain Sodium Chloride (Sodium Chloride 0.9% 10 Ml Syringe) 10 ml FLUSH ASDIRECTED PRN PRN Reason: Keep Vein Open Witch Domonique (Witch Domonique Medicated Pads 40/Jar) 1 pad TOP ASDIRECTED PRN PRN Reason: Perineal Comfort Measure
== END 2020-09-27 13:30 | disposition home or self-care (01) | DRG 805 ==
LOC: JD.OBCHECK 06:17 → JD.OB 06:23 → JD.OBCHECK 06:30 → OBSVTOIN 08:04 → JD.OB 08:05
PROVIDERS: ADMIT Obstetrics & Gynecology; ATTEND Obstetrics & Gynecology
PROC: 10E0XZZ Delivery of Products of Conception, External Approach (ICD-10-PCS; principal; 2020-09-26)
DX: O98.52 Other viral diseases complicating childbirth (principal); U07.1 COVID-19; Z37.0 Single live birth; Z3A.39 39 weeks gestation of pregnancy
CPT/HCPCS: 36415; 59025; 59409; 85025; 85027; 86592; 86850; 86900; 86901; A9270-GY; J2590; J7120; U0002